=== PATIENT | male | born 1945 | race Caucasian/White ===

== ENCOUNTER 2022-07-09 09:01 | Outpatient (CLI) | payer OTHER, SELFPAY | END 2022-07-09 09:02 | disposition home or self-care (01) | LOC: NFLDREF 07-11 08:19 | PROVIDERS: PCP Emergency Medicine; Referring Provider Emergency Medicine; Visit Provider Emergency Medicine | DX: Z00.00 Encounter for general adult medical examination without abnormal findings (principal); E78.5 Hyperlipidemia, unspecified; E11.9 Type 2 diabetes mellitus without complications; E03.9 Hypothyroidism, unspecified; I10 Essential (primary) hypertension | CPT/HCPCS: 80053; 80061; 82043; 82570; 84443 ==

== ENCOUNTER 2022-10-12 11:02 | Outpatient (CLI) | payer OTHER, SELFPAY | END 2022-10-12 11:03 | disposition home or self-care (01) | LOC: NFLDREF 10-14 06:27 | PROVIDERS: PCP Emergency Medicine; Referring Provider Emergency Medicine; Visit Provider Emergency Medicine | DX: E03.9 Hypothyroidism, unspecified (principal) | CPT/HCPCS: 84443 ==

== ENCOUNTER 2023-05-22 11:49 | Outpatient (CLI) | payer OTHER, SELFPAY | END 2023-05-22 11:50 | disposition home or self-care (01) | LOC: LKVREF 11:49 | PROVIDERS: PCP Emergency Medicine; Visit Provider Nurse Practitioner Family | DX: R05.9 Cough, unspecified (principal); J18.9 Pneumonia, unspecified organism | CPT/HCPCS: 83880 ==

== ENCOUNTER 2023-06-01 08:18 | Outpatient (CLI) | payer OTHER, SELFPAY | END 2023-06-01 08:19 | disposition home or self-care (01) | LOC: NFLDREF 06-02 14:02 | PROVIDERS: PCP Emergency Medicine; Referring Provider Emergency Medicine; Visit Provider Emergency Medicine | DX: E03.9 Hypothyroidism, unspecified (principal); E11.9 Type 2 diabetes mellitus without complications; E78.5 Hyperlipidemia, unspecified; I10 Essential (primary) hypertension | CPT/HCPCS: 80053; 80061; 82043; 82570; 84439; 84443; G0103 ==

== ENCOUNTER 2023-09-07 08:28 | Outpatient (CLI) | payer OTHER, SELFPAY | END 2023-09-07 08:29 | disposition home or self-care (01) | LOC: NFLDREF 09-08 08:16 | PROVIDERS: PCP Emergency Medicine; Referring Provider Emergency Medicine; Visit Provider Emergency Medicine | DX: R17 Unspecified jaundice (principal); E03.9 Hypothyroidism, unspecified | CPT/HCPCS: 80076; 84443 ==

== ENCOUNTER 2024-05-08 19:38 | Outpatient (REF) | payer OTHER, SELFPAY ==
[2024-05-08 20:03] LABS: Chloride* 96 mmol/L (96-114); Potassium* 3.7 mmol/L (3.6-5.1); Sodium* 135 mmol/L (135-149)
[2024-05-08 20:06] LABS: Anion Gap 10 mEq/L (7-15); Blood Urea Nitrogen* 29 mg/dL (7-30); Carbon Dioxide* 29 mmol/L (20-32); Creatinine* 1.3 mg/dL (0.5-1.5); Estimated Glomerular Filt Rate 57 ml/min
[2024-05-08 20:07] LABS: Calcium* 9.7 mg/dL (8.4-10.6); Glucose* 175 mg/dL (60-115)
== END 2024-05-08 19:39 | disposition home or self-care (01) ==
LOC: NPINS 19:38
PROVIDERS: PCP Emergency Medicine; Visit Provider Internal Medicine Cardiovascular Disease
DX: I10 Essential (primary) hypertension (principal)
CPT/HCPCS: 80048

== ENCOUNTER 2024-05-23 15:13 | Outpatient (CLI) | payer OTHER, SELFPAY | END 2024-05-23 15:14 | disposition home or self-care (01) | PROVIDERS: PCP Emergency Medicine; Visit Provider Emergency Medicine | DX: E11.9 Type 2 diabetes mellitus without complications (principal); I10 Essential (primary) hypertension; E03.9 Hypothyroidism, unspecified; Z79.84 Long term (current) use of oral hypoglycemic drugs; Z13.21 Encounter for screening for nutritional disorder | CPT/HCPCS: 80053; 82043; 82570; 82607; 84443 ==

== ENCOUNTER 2024-05-24 08:12 | Outpatient (CLI) | payer OTHER, SELFPAY | END 2024-05-24 08:13 | disposition home or self-care (01) | PROVIDERS: PCP Emergency Medicine; Visit Provider Emergency Medicine | DX: R53.83 Other fatigue (principal); E11.9 Type 2 diabetes mellitus without complications; Z13.21 Encounter for screening for nutritional disorder | CPT/HCPCS: 82607; 82746; 83090 ==

== ENCOUNTER 2024-06-07 09:27 | Outpatient (CLI) | payer OTHER, SELFPAY | END 2024-06-07 09:28 | disposition home or self-care (01) | LOC: LKVREF 09:28 | PROVIDERS: PCP Emergency Medicine; Visit Provider Emergency Medicine | DX: E53.8 Deficiency of other specified B group vitamins (principal); R53.83 Other fatigue | CPT/HCPCS: 82607 ==

== ENCOUNTER 2024-10-04 08:24 | Outpatient (CLI) | payer OTHER, SELFPAY | END 2024-10-04 08:25 | disposition home or self-care (01) | LOC: NFLDREF 10-06 21:37 | PROVIDERS: PCP Emergency Medicine; Referring Provider Emergency Medicine; Visit Provider Emergency Medicine | DX: E53.8 Deficiency of other specified B group vitamins (principal); E78.2 Mixed hyperlipidemia | CPT/HCPCS: 80061; 82607 ==

== ENCOUNTER 2024-11-15 14:42 | Outpatient (CLI) | payer OTHER, SELFPAY | END 2024-11-15 14:43 | disposition home or self-care (01) | LOC: LKVREF 14:43 | PROVIDERS: PCP Emergency Medicine; Visit Provider Emergency Medicine | DX: I10 Essential (primary) hypertension (principal) | CPT/HCPCS: 80048 ==

== ENCOUNTER 2025-01-17 10:20 | Outpatient (CLI) | payer OTHER, SELFPAY | END 2025-01-17 10:21 | disposition home or self-care (01) | LOC: NFLDREF 01-23 16:13 | PROVIDERS: Visit Provider Emergency Medicine | DX: E53.8 Deficiency of other specified B group vitamins (principal) | CPT/HCPCS: 82607 ==